=== PATIENT | male | born 1985 | race Caucasian/White ===

== ENCOUNTER 2020-09-06 22:57 | Emergency (ER) | payer BC ==
[~2020-09-06] VITALS: Ht 177.8 cm; Wt 69.9 kg
[2020-09-06 23:09] VITALS: BP 91/61
[2020-09-07] MEDS ORDERED: ACETAMINOPHEN EXTRA STRENGTH 500 MG TAB PO ONE (01:30)
[2020-09-07] MEDS ORDERED: NAPR-54 PO (02:43)
[2020-09-07] MEDS ORDERED: CYCL-711 PO (02:43)
[2020-09-07 03:12] VITALS: BP 91/61
== END 2020-09-07 03:05 | disposition home or self-care (01) ==
LOC: MED 22:57
DX: S16.1XXA Strain of muscle, fascia and tendon at neck level, initial encounter (principal); M54.5 Low back pain; V89.2XXA Person injured in unspecified motor-vehicle accident, traffic, initial encounter; Y93.89 Activity, other specified; Y92.89 Other specified places as the place of occurrence of the external cause; Y99.8 Other external cause status
CPT/HCPCS: 71045; 72040; 72100; 99284